=== PATIENT | male | born 1970 | race Caucasian/White ===

== ENCOUNTER 2020-09-11 12:50 | Emergency (ER) | payer BC | END 2020-09-11 13:25 | disposition home or self-care (01) | LOC: MADERS 12:50 | DX: S81.012A Laceration without foreign body, left knee, initial encounter (principal); F17.210 Nicotine dependence, cigarettes, uncomplicated; W27.0XXA Contact with workbench tool, initial encounter | CPT/HCPCS: 12001 ==

== ENCOUNTER 2023-03-09 18:54 | Emergency (ER) | payer BC ==
[2023-03-09] MEDS ORDERED: Bacitracin 1 PK ONE (21:43)
== END 2023-03-09 21:50 | disposition home or self-care (01) ==
LOC: MADERS 18:54
DX: S61.213A Laceration without foreign body of left middle finger without damage to nail, initial encounter (principal); F17.210 Nicotine dependence, cigarettes, uncomplicated; W23.0XXA Caught, crushed, jammed, or pinched between moving objects, initial encounter
CPT/HCPCS: 12001